=== PATIENT | female | born 1970 | race American Indian/Alaskan Native ===

== ENCOUNTER 2019-11-28 09:54 | Emergency (ER) | payer OTHER ==
[2019-11-28 10:26] VITALS: BP 169/84
[2019-11-28] MEDS ORDERED: SODIUM CHLORIDE 0.9% 1000 ML 1,000 ML IV ONE ×2 (11:25→13:15)
[2019-11-28] MEDS ORDERED: MECLIZINE 25 MG TAB PO ONE (11:25)
--- NOTE | 2019-11-28 11:27 | Event Note ---
ED Screening Note ED Screening Note: Patient presents with dizziness, sensation of room spinning Began 2 weeks ago Worse with head movements such as turning head or lifting head up States that she has associated nausea vomiting due to the dizziness States that she has been having sweats and believes that she was dehydrated No chest pain, no shortness of breath, no vision changes, no numbness, no unilateral weakness She states that she did take meclizine for 5 days and her symptoms resolved but then began again today, she took herself off the meclizine This initial assessment/diagnostic orders/clinical plan/treatment(s) is/are subject to change based on patients health status, clinical progression and re- assessment by fellow clinical providers in the ED. Further treatment and workup at subsequent clinical providers discretion. Patient/guardian urged not to elope from the ED as their condition may be serious if not clinically assessed and managed. Initial orders include: Labs, urine, EKG, CT
[2019-11-28 11:50] LABS: Basophils % (Auto) 0.8 % (0.0-1.8); Eosinophils % (Auto) 0.5 % (0.0-4.3); Hematocrit 41.6 % (30.3-42.9); Hemoglobin 14.5 gm/dl (10.1-14.3); Lymphocytes # (Auto) 1.7 K/mm3 (1.2-5.4); Lymphocytes % (Auto) 30.5 % (13.4-35.0); Mean Corpuscular HGB Conc 35 % (30-34); Mean Corpuscular Volume 95 fl (79-97); Monocytes # (Auto) 0.4 K/mm3 (0.0-0.8); Platelet Count 264 K/mm3 (140-440); Red Blood Count 4.37 M/mm3 (3.65-5.03); Red Cell Distribution Width 13.9 % (13.2-15.2)
--- NOTE | 2019-11-28 12:06 | Cat Scan Report ---
CT head/brain wo con INDICATION / CLINICAL INFORMATION: 49 years Female; dizziness, headache. TECHNIQUE: Routine CT head without contrast. All CT scans at this location are performed using CT dos e reduction for ALARA by means of automated exposure control. COMPARISON: None. FINDINGS: BRAIN / INTRACRANIAL CONTENTS: No acute hemorrhage, mass effect, midline shift, hydrocephalus, or acu te, large territorial infarct. No chronic infarct or atrophy appreciated. No significant white matter abnormality. CRANIOCERVICAL JUNCTION: No significant abnormality. ORBITS: No significant abnormality of visualized orbits. SINUSES / MASTOIDS: No significant abnormality in the visualized paranasal sinuses or mastoid air halle ls. ADDITIONAL FINDINGS: None. IMPRESSION: 1. No focal mass, hemorrhage, hydrocephalus, or acute, large territorial infarct. Signer Name: Braxton Romano MD, III Signed: 11/28/2019 12:02 PM Workstation Name: [facility]ITALMaker[facility] [id number] [id number]
[2019-11-28 12:07] LABS: Alanine Aminotransferase 24 units/L (7-56); Albumin 4.6 g/dL (3.9-5); BUN/Creatinine Ratio 9; Blood Urea Nitrogen 6 mg/dL (7-17); Calcium 9.4 mg/dL (8.4-10.2); Hemolysis Index 14
--- NOTE | 2019-11-28 12:10 | Emergency Department Report ---
ED Dizziness HPI - General Chief Complaint: Dizziness Stated Complaint: FAINT/PAIN IN BACK OF HEAD Time Seen by Provider: 11/28/19 11:24 Source: patient Mode of arrival: Wheelchair Limitations: No Limitations - History of Present Illness Initial Comments: Patient is a 49-year-old -[place] female who comes to the ER with a several week history of vertigo. She states that certainly she moves her head, indicating to the left she gets dizzy. She states that this all started after barbecuing and coming in 1 day a couple weeks ago then getting chills: She took a nap and woke up and started having vertigo. She has no chest pain or shortness of breath. She has no fever or chills. Patient did do a telemedicine visit with her primary care who started her on Antivert. She stopped taking the Antivert and got dizzy yesterday. Thus she comes to the ER today MD Complaint: dizziness -: Gradual, week(s) Description: "room spinning" History of Same: Yes History of Trauma: No Severity: mild Improves With: nothing Worsens With: movement Associated Symptoms: denies other symptoms - Related Data Previous Rx's Medication Instructions Recorded Last Taken Type Docusate Sodium [Colace] 100 mg PO BID PRN #60 capsule 11/27/16 Unknown Rx Hydromorphone HCl [Dilaudid] 4 mg PO Q6H PRN #45 tablet 11/27/16 Unknown Rx Ibuprofen [Motrin] 800 mg PO Q8HR PRN #60 tablet 11/27/16 Unknown Rx Allergies Allergy/AdvReac Type Severity Reaction Status Date / Time No Known Allergies Allergy Verified 11/28/19 10:25 ED Review of Systems ROS: Stated complaint: FAINT/PAIN IN BACK OF HEAD Other details as noted in HPI Comment: All other systems reviewed and negative ED Past Medical Hx - Past Medical History Previous Medical History?: No Hx Congestive Heart Failure: No Hx Diabetes: No Hx Seizures: Yes Hx Asthma: No Hx COPD: No Hx HIV: No Additional medical history: hiatal hernia - Surgical History Past Surgical History?: Yes Additional Surgical History: left knee surgery, hysterectomy - Family History Family history: no significant - Social History Smoking Status: Current Every Day Smoker Substance Use Type: Alcohol, Marijuana - Medications Home Medications: Home Medications Medication Instructions Recorded Confirmed Last Taken Type Docusate Sodium [Colace] 100 mg PO BID PRN #60 capsule 11/27/16 Unknown Rx Hydromorphone HCl [Dilaudid] 4 mg PO Q6H PRN #45 tablet 11/27/16 Unknown Rx Ibuprofen [Motrin] 800 mg PO Q8HR PRN #60 tablet 11/27/16 Unknown Rx ED Physical Exam - General Limitations: No Limitations General appearance: alert, in no apparent distress - Head Head exam: Present: atraumatic, normocephalic - Eye Eye exam: Present: normal appearance - ENT ENT exam: Present: mucous membranes moist - Neck Neck exam: Present: normal inspection - Respiratory Respiratory exam: Present: normal lung sounds bilaterally. Absent: respiratory distress - Cardiovascular Cardiovascular Exam: Present: regular rate, normal rhythm. Absent: systolic murmur, diastolic murmur, rubs, gallop - GI/Abdominal GI/Abdominal exam: Present: soft, normal bowel sounds - Extremities Exam Extremities exam: Present: normal inspection - Back Exam Back exam: Present: normal inspection - Neurological Exam Neurological exam: Present: alert, oriented X3 - Psychiatric Psychiatric exam: Present: normal affect, normal mood - Skin Skin exam: Present: warm, dry, intact, normal color. Absent: rash ED Course Vital Signs 11/28/19 10:25 Temperature 97.8 F Pulse Rate 69 Respiratory 16 Rate Blood Pressure 169/84 O2 Sat by Pulse 100 Oximetry ED Medical Decision Making - Lab Data Result diagrams: 11/28/19 11:40 11/28/19 11:40 - EKG Data EKG shows normal: sinus rhythm Rate: normal - EKG Data Interpretation: no acute changes, normal EKG - Radiology Data Radiology results: report reviewed, image reviewed No acute process - Medical Decision Making Labs 11/28/19 11/28/19 11/28/19 11:40 11:40 12:48 WBC 5.5 RBC 4.37 Hgb 14.5 H Hct 41.6 MCV 95 MCH 33 H MCHC 35 H RDW 13.9 Plt Count 264 Lymph % (Auto) 30.5 Posey % (Auto) 7.0 Eos % (Auto) 0.5 Baso % (Auto) 0.8 Lymph # 1.7 Posey # 0.4 Eos # 0.0 Baso # 0.0 Seg Neutrophils % 61.2 Seg Neutrophils # 3.4 Sodium 136 L Potassium 3.7 Chloride 100.3 Carbon Dioxide 23 Anion Gap 16 BUN 6 L Creatinine 0.7 Estimated GFR > 60 BUN/Creatinine Ratio 9 Glucose 91 Calcium 9.4 Magnesium 1.80 Total Bilirubin 0.40 AST 28 ALT 24 Alkaline Phosphatase 189 H Total Creatine Kinase 108 Total Protein 7.7 Albumin 4.6 Albumin/Globulin Ratio 1.5 Urine Color Yellow Urine Turbidity Clear Urine pH 6.0 Ur Specific [place] 1.019 Urine Protein <15 mg/dl Urine Glucose (UA) Neg Urine Ketones 80 Urine Blood Sm Urine Nitrite Neg Urine Bilirubin Neg Urine Urobilinogen < 2.0 Ur Leukocyte Esterase Neg Urine WBC (Auto) 1.0 Urine RBC (Auto) 12.0 U Epithel Cells (Auto) 3.0 Hyaline Casts 1 Urine Mucus Few Urine HCG, Qual Negative Vital Signs 11/28/19 10:25 Temperature 97.8 F Pulse Rate 69 Respiratory 16 Rate Blood Pressure 169/84 O2 Sat by Pulse 100 Oximetry Labs noted. Urine noted. Head CT noted. Patient hydrated with normal saline. Patient has classic vertigo when turning to the left. She also has ketones in her urine. She does work outside and in an active job. Patient was educated on vertigo and the need to take her Antivert medication. She will follow-up with her PCP and ENT if needed. Patient verbalizes understanding of her discharge plan of care. - Differential Diagnosis Rule out intracranial lesion: Rule out infection: Rule out anemia: Vertigo Critical care attestation.: If time is entered above; I have spent that time in minutes in the direct care of this critically ill patient, excluding procedure time. ED Disposition Clinical Impression: Ketonuria, Dizziness Disposition: DC-01 TO HOME OR SELFCARE Is pt being admited?: No Does the pt Need Aspirin: No Condition: Stable Additional Instructions: TAKE MEDS INSTRUCTED BY PCP HYDRATE WELL WITH WATER AVOID CIG SMOKE/ALCOHOL AND DRUGS FOLLOW UP WITH PCP REFERRAL BELOW SHOULD YOU NEED LOCAL ONE CT HEAD NORMAL TODAY Referrals: PRIMARY MD XAVI [Primary Care Provider] - 3-5 Days CORIE MARCOS MD [Staff Physician] - 3-5 Days Time of Disposition: 13:16
[2019-11-28] MEDS ORDERED: ONDANSETRON 4 MG/2 ML INJ IV ONE (12:15)
[2019-11-28] MEDS ORDERED: IBUPROFEN 800 MG TAB PO ONE (12:16)
[2019-11-28 13:08] LABS: Bilirubin,Urine NEG (Negative); Blood,Urine SM (Negative); Color,Urine Yellow (Yellow); Hyaline Casts,Urine 1 /LPF; Mucus,Urine FEW /HPF; Protein,Urine <15 mg/dL mg/dL (Negative); Urobilinogen,Urine < 2.0 mg/dL (<2.0)
[2019-11-28 13:09] LABS: HCG Qualitative,Urine Negative (Negative)
== END 2019-11-28 16:53 | disposition home or self-care (01) ==
LOC: ED 09:54
DX: R82.4 Acetonuria (principal); R42 Dizziness and giddiness; F17.200 Nicotine dependence, unspecified, uncomplicated; F12.10 Cannabis abuse, uncomplicated; Z86.69 Personal history of other diseases of the nervous system and sense organs; Z90.710 Acquired absence of both cervix and uterus; Z98.890 Other specified postprocedural states; Z79.1 Long term (current) use of non-steroidal anti-inflammatories (NSAID)
CPT/HCPCS: 36415; 70450; 80053; 81001; 81025; 82550; 83735; 85025; 93005; 96361; 96374; 99284; J2405; J7030